=== PATIENT | male | born 1975 ===

== ENCOUNTER 2022-11-11 19:35 | Emergency (ER) | payer BC, SELFPAY ==
--- NOTE | ~2022-11-11 | XR_ITS ---
EXAMINATION: XR chest 1V portable DATE: 11/12/2022 06:17 INDICATION: Chest discomfort. Congestion. TECHNIQUE: A single frontal view of the chest was obtained. COMPARISON: Chest 2 views 07/03/2015 FINDINGS: There are airspace opacities in the lower lung zones. No pleural effusion or pneumothorax. Cardiomegaly is noted. IMPRESSION: 1. Airspace opacities in the lower lung zones, consistent with atelectasis versus pneumonia. 2. Cardiomegaly. Reviewed, dictated and finalized at location A. GER PIPELINE IMPRESSION: 1. Airspace opacities in the lower lung zones, consistent with atelectasis vers us pneumonia. 2. Cardiomegaly.
[2022-11-11 20:11] VITALS: BP 191/111; PULSE 85; RESP 20; TEMP 37.3; O2SAT 97
--- NOTE | 2022-11-11 20:13 | ECG_ITS ---
Measurements Intervals [place] Rate: 74 P: 27 WI: 172 QRS: 35 QRSD: 92 T: 186 QT: 411 QTc: 458 Interpretive Statements SINUS RHYTHM POSSIBLE LEFT ATRIAL ENLARGEMENT [-0.1mV P WAVE IN V1/V2] MODERATE T-WAVE ABNORMALITY, CONSIDER LATERAL ISCHEMIA [-0.1+ mV T WAVE IN I/aVL/V5/V6] MODERATE T-WAVE ABNORMALITY, CONSIDER INFERIOR ISCHEMIA [-0.1+ mV T WAVE IN II/aVF] NO PREVIOUS ECG AVAILABLE FOR COMPARISON Electronically Signed On 11-12-2022 16:18:47 [employer] by Christin Lynch M.D.
[2022-11-12 00:15] VITALS: BP 166/101; PULSE 80; RESP 20; TEMP 37.4; O2SAT 96
[2022-11-12 02:54] VITALS: BP 169/108; PULSE 71; RESP 20; O2SAT 97
--- NOTE | 2022-11-12 02:54 | PC.NURSE ---
pt states he took 30mg PO Isosorbide and 100mg PO hydralizine while in the waiting room at 2300.
--- NOTE | 2022-11-12 05:24 | ED.GENADULT ---
HPI - General Adult General Chief complaint: Unspecified <Mehdi Green MD - Last Filed: 11/12/22 08:32> Stated complaint: High BP, Cough, Sinus Pressure <Mehdi Green MD - Last Filed: 11/12/22 08:32> Time Seen by Provider: 11/12/22 03:14 <Mehdi Green MD - Last Filed: 11/12/22 08:32> History of Present Illness HPI narrative: This is a 39-year-old male presenting ED with chief complaint of sinus pressure/ headache and elevated blood pressure. Patient has had cough congestion and body aches for the last week. Today started to developed a pounding headache. Patient has been taking cough syrup and [id number] medicines with some relief. Patient also developed chest discomfort today. Patient describes it as a substernal chest discomfort that is nonradiating, mild in intensity, constant. There are no exacerbating or alleviating factors. It is not associated with diaphoresis, exertion or vomiting. Patient is concerned because he developed pneumonia last year which led to him developing heart injury and kidney injury. Patient currently denies shortness of breath, lower extremity edema, abdominal pain, fever chills nausea vomiting or diarrhea. The patient also notes that his blood pressure has been elevated in [id number] He takes hydralazine Coreg, and isosorbide dinitrate. <Mehdi Green MD - Last Filed: 11/12/22 08:32> Related Data Allergies/adverse reactions: Allergies Allergy/AdvReac Type Severity Reaction Status Date / Time No Known Allergies Allergy Unverified 07/03/15 10:23 <Mehdi Green MD - Last Filed: 11/12/22 08:32> Review of Systems Review of Systems: CONSTITUTIONAL: Denies night sweats. EYES: No eye pain ENT: Denies rhinorrhea CARDIOVASCULAR: Denies palpitations RESPIRATORY: Denies hemoptysis GASTROINTESTINAL: Denies hematemesis GENITOURINARY: Denies hematuria. SKIN: Denies rash MUSCULOSKELETAL: Denies myalgia. NEUROLOGIC: Denies weakness. PSYCHIATRIC: Denies delusions <Mehdi Green MD - Last Filed: 11/12/22 08:32> [facility] Past Medical History Medical History: Medical History CHF (congestive heart failure) CKD (chronic kidney disease) Hypertension <Mehdi Green MD - Last Filed: 11/12/22 08:32> Social History Social History: Social History Social History: Negative for alcohol cigarettes or drug <Mehdi Green MD - Last Filed: 11/12/22 08:32> Exam Narrative: APPEARANCE: No apparent distress. Head: atraumatic. Vesicular rash over the patients lips EYES: EOMI, NOSE: Atraumatic NECK: Trachea midline RESPIRATORY: No increased rate of breathing, clear to auscultation bilaterally CARDIOVASCULAR: RRR, no peripheral edema ABDOMINAL: Non-distended MUSCULOSKELETAl: No obvious deformities NEURO: Alert. Moving 4/4 extremities SKIN:: Warm, dry. Normal color PSYCHIATRIC: Normal affect <Mehdi Green MD - Last Filed: 11/12/22 08:32> Course Reevaluation(s) Reevaluation #1: Patient care was handed to me by Dr. Green with delta troponin pending. Patient's repeat troponin was improved. Patient was once again offered admission for cardiac rule out and patient declined. 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 Patient was encouraged to have his outpatient follow-up and patient was also encouraged to return to the emergency department if he has any questions or concerns. <Anthony Carrington MD - Last Filed: 11/12/22 15:27> Vital Signs Vital signs: Vital Signs Temperature 99.1 F 11/11/22 20:11 Pulse Rate 85 11/11/22 20:11 Respiratory Rate 20 11/11/22 20:11 Blood Pressure 191/111 H 11/11/22 20:11 Pulse Oximetry 97 11/11/22 20:11 Oxygen Delivery Room Air 11/11/22 20:11 Temperature 99.4 F 11/12/22 00:15 Pulse Rate 72 11/12/22 09:35 Respiratory R
[2022-11-12] MEDS: PROCHLORPERAZINE EDISYLATE 10 MG/2 ML VIAL IV PUSH (05:40)
[2022-11-12] MEDS: diphenhydrAMINE HCl INJ 50 MG/ML VIAL 25 MG IV PUSH (05:40)
[2022-11-12 05:41] LABS: Basophils Percent Auto 0.5 % (0.2-1.2); Eosinophils Absolute Auto 0.4 K/mm3 (0-0.3); Eosinophils Percent Auto 5.1 % (0-4.4); Hematocrit 41.3 % (42.0-52.0); Hemoglobin 13.6 g/dL (14.0-18.0); Immature Granulocyte Absolute 0.04 K/mm3 (0.00-0.031); Immature Granulocyte Percent A 0.5 % (0-0.5); Lymphocytes Absolute Auto 1.37 K/mm3 (0.9-3.2); Lymphocytes Percent Auto 16.4 % (18.3-44.2); Mean Corpuscular HGB Conc 32.9 g/dl (32-36); Mean Corpuscular Hemoglobin 28.3 pg (26-34); Mean Corpuscular Volume 85.9 fl (80-100); Mean Platelet Volume 9.7 fl (7.4-10.4); Monocytes Absolute Auto 0.8 K/mm3 (0.1-0.6); Monocytes Percent Auto 9.8 % (2.6-8.5); Neutrophils Absolute Auto 5.7 K/mm3 (1.3-6.7); Neutrophils Percent Auto 67.7 % (45.5-73.1); Platelet Count Result 213 k/mm3 (150-375); Red Blood Count 4.81 M/mm3 (4.6-6.20); Red Cell Distribution Width 13.3 % (11.5-14.5); White Blood Count 8.4 K/mm3 (4.5-10.0)
[2022-11-12 05:51] LABS: Anion Gap 8 mmol/L (8-16); Blood Urea Nitrogen 18 mg/dL (9-20); Calcium 8.9 mg/dL (8.4-10.2); Carbon Dioxide 30 mmol/L (22-30); Chloride 100 mmol/L (98-107); Estimated CRCL calculation 51 ml/min; Estimated Glomerular Filt Rate 40; Glucose 95 mg/dL (65-110); Magnesium 2.2 mg/dL (1.6-2.3); Potassium 3.3 mmol/L (3.4-5.0); Sodium 138 mmol/L (137-145)
[2022-11-12 06:11] LABS: Troponin I 0.037 ng/mL (0.000-0.034)
[2022-11-12 06:23] LABS: NT Pro B Type Natriuretic Pept 531 pg/mL (5-100)
[2022-11-12] MEDS: ASPIRIN 81 MG CHEWABLE TABLET 324 MG PO (06:28)
--- NOTE | 2022-11-12 06:42 | PC.NURSE ---
per dr cooper pt ok to take home BP medication/. pt took 30mg isosorbide po and 100mg hydralizine po
[2022-11-12 07:27] VITALS: BP 156/104; PULSE 73; RESP 18; O2SAT 98
[2022-11-12 08:17] VITALS: BP 124/82; PULSE 61; RESP 14; O2SAT 96
[2022-11-12 08:54] LABS: Troponin I 0.034 ng/mL (0.000-0.034)
[2022-11-12 09:35] VITALS: BP 124/82; PULSE 72; RESP 18; O2SAT 99
== END 2022-11-12 09:36 | disposition home or self-care (01) ==
PROVIDERS: Emergency Provider Emergency Medicine; PCP Physician Assistant
DX: B34.9 Viral infection, unspecified (principal); I50.9 Heart failure, unspecified; I13.0 Hypertensive heart and chronic kidney disease with heart failure and stage 1 through stage 4 chronic kidney disease, or unspecified chronic kidney disease; N18.9 Chronic kidney disease, unspecified; Z87.01 Personal history of pneumonia (recurrent); R94.31 Abnormal electrocardiogram [ECG] [EKG]; I51.7 Cardiomegaly; R91.8 Other nonspecific abnormal finding of lung field
CPT/HCPCS: 36415; 71045; 80048; 83735; 83880; 84484; 85025; 93005; 96365; 96375; 99284; A9270; J0131; J0780; J1200